=== PATIENT | female | born 1985 | race Caucasian/White ===

== ENCOUNTER 2023-12-01 15:18 | Emergency (ER) | payer OTHER, SELFPAY ==
[2023-12-01 15:24] VITALS: BP 93/73
[2023-12-01 15:49] LABS: Urine Albumin Negative (Neg - Trace); Urine Bilirubin Negative (Negative); Urine Character Slightly Cloudy (Clear); Urine Color Yellow; Urine Glucose Negative (Negative); Urine Ketone Negative (Negative); Urine Leukocyte Negative (Negative); Urine Nitrite Negative (Negative); Urine Occult Blood Negative (Negative); Urine Specific Gravity 1.025 (<1.030); Urine Urobilinogen Negative (Neg - 1+)
--- NOTE | 2023-12-01 16:41 | ED.GENMED ---
History of Present Illness
General
Chief Complaint: Abdominal Symptoms
Source: patient
Time Seen by Provider: 12/01/23 16:11
History of Present Illness
History of Present Illness:
38yoF with a history of anxiety presenting with her significant other for evaluation of vomiting and diarrhea. Symptoms began around 5:30am this morning with loose stool. She has been having persistent vomiting and diarrhea throughout the day and
has been unable to tolerate PO intake. She estimates that she has had about 30 episodes of diarrhea so far today. She is also having generalized abdominal pain that comes in waves. The pain worsens right before she has a bowel movement and then
improves shortly afterwards. She denies any fevers, hematochezia, hematemesis. She ate steak, rice, and salad at a restaurant last night. She denies any recent travel, recent antibiotics, or sick contacts.
Phy Exam
General Physical Exam
General Presentation: well appearing and no apparent distress
General Skin: warm and dry
General Habitus: normal
General Mental: alert
Cardiovascular Exam
Cardiovascular Exam: regular rate/rhythm
Heart Sounds: normal
Pulmonary Exam
Pulmonary Exam: lungs clear, no respiratory distress, no rales, no crackles, no rhonchi and no wheezing
Gastrointestinal Exam
Gastrointestinal Exam: non tender, soft and non distended
Course
Orders/Labs/Results
Orders:
Orders
12/01/23 15:27
Urinalysis Reflex To Culture Urgent
Date Specimen was Collected: 12/01/23
Time Specimen was Collected: 15:21
12/01/23 16:40
0.9% Sodium Chloride 1000 ml [Nss] 1,000 ml IV BOLUS
Ondansetron Injectable [Zofran] 4 mg IV NOW STA
Test Result ONCE
12/01/23 17:00
Complete Blood Count/With Diff Urgent
Comprehensive Metabolic Panel Urgent
HCG, Serum Qualitative Screen Urgent
Lipase Urgent
Abnormal Lab Results
12/01/23
17:00
MCH 31.4 H pg
(27.0-31.0)
Absolute Neuts (auto) 9.8 H 10^3/uL
(1.4-6.5)
Absolute Lymphs (auto) 0.4 L 10^3/uL
(1.2-3.4)
Neutrophils % 91.7 H %
(42.2-75.2)
Lymphocytes % 3.3 L %
(20.5-51.1)
Carbon Dioxide 18 L mmol/L
(22-30)
Calcium 10.3 H mg/dl
(8.4-10.2)
12/01/23 17:00
12/01/23 17:00
Vital Signs
Initial and Last Documented VS:
Initial Vital Signs
Temp Pulse Resp BP Pulse Ox
98.7 F 107 16 93/73 99
12/01/23 15:24 12/01/23 15:24 12/01/23 15:24 12/01/23 15:24 12/01/23 15:24
Last Documented Vital Signs
Temp Pulse Resp BP Pulse Ox
98.7 F 75 16 109/71 98
12/01/23 15:24 12/01/23 17:35 12/01/23 15:24 12/01/23 17:35 12/01/23 17:35
MDM/Problems Addressed
Differential Diagnosis Includes:
38yoF presenting for vomiting and diarrhea that began this morning. Patient ate at a restaurant for dinner last night. Also complaining of colicky abdominal pain although she has no pain currently. She is afebrile and hemodynamically stable. She
is well-appearing in no acute distress. Abdomen is soft, nontender. Differential diagnosis includes but is not limited to: Gastroenteritis, dehydration, electrolyte abnormality, doubt acute surgical pathology
Initial ED plan: Check abdominal labs, hCG, and stool studies. Defer abdominal imaging given benign exam. IV Zofran and fluid bolus for symptoms.
*Critical Care Note
Total Time (30-74mins, 75-104mins- exclusive of procedures): Not Applicable
Update Note
Update Note:
Labs reassuring including normal white count, electrolytes, and renal function. hCG negative. Patient feeling significantly improved after medications on reassessment. Patient is tolerating p.o. fluids and she feels comfortable with discharge.
Prescription for Zofran provided and supportive care discussed. Advise follow-up with PCP and return to the ED with any worsening symptoms. Patient expressed understanding and is agreeable to plan. Patient discharged in stable condition.
ED Attending Note
-
Portions of this chart may have been created with voice recognition software.� Occasional wrong word or��sound alike� substitutions may have occurred due to the inherent limitations of voice recognition software.
Discharge Plan
Departure
Patient Disposition: Home (Routine Discharge)
Date of Disposition: 12/01/23
Time of Disposition: 18:14
Patient with high blood pressure during this ER visit?: No
Discharge Problem:
Nausea & vomiting
Instructions: Acute Nausea and Vomiting
Prescriptions:
New
ondansetron 4 mg tablet,disintegrating
4 mg PO Q6H PRN (Reason: nausea and vomiting) Qty: 20 0RF
Referrals:
Lily Jay, DO [Family Provider] -
Activity Restrictions/Additional Instructions:
Take Zofran as needed for nausea. Drink plenty of fluids and hydrate. Advance slowly to a bland diet (rice, applesauce, toast).
Please follow-up with your family doctor. Return to the ER with any worsening symptoms.
Interventions
Interventions:
*Risk Screen - Suicide Last Done: 12/01/23 17:33
*General Assessment Last Done: 12/01/23 17:33
*Neglect/Abuse Screening Last Done: 12/01/23 17:33
ED- Fall Risk Assessment Last Done: 12/01/23 18:36
*ED COVID-19 Vaccine History Last Done: 12/01/23 17:33
*Nursing Disposition Last Done: 12/01/23 18:36
FY-[id number]-[id number] Assessment Last Done: 12/01/23 17:33
Discharge Date and Time
Discharge Date/Time: 12/01/23 18:40
Print Language: PERUVIAN
[2023-12-01] MEDS: ZOFRAN 4 MG IV (16:58)
[2023-12-01] MEDS: NSS 1000 IV (16:58)
[2023-12-01 17:17] LABS: % Basophils 0.1 % (0-2); % Eosinophils 0.2 % (0-6); % Immature Granulocytes 0.3 % (0-0.5); % Lymphocytes 3.3 % (20.5-51.1); % Monocytes 4.4 % (1.7-9.3); % Neutrophils 91.7 % (42.2-75.2); Absolute Lymphocytes 0.4 10^3/uL (1.2-3.4); Absolute Monocytes 0.5 10^3/uL (0.1-0.6); Absolute Neutrophils 9.8 10^3/uL (1.4-6.5); Hematocrit 38.4 % (37.0-47.0); Hemoglobin 13.6 g/dL (12.0-16.0); Mean Corp Hgb Conc. 35.4 g/dL (33.0-37.0); Mean Corpuscular Hgb 31.4 pg (27.0-31.0); Mean Corpuscular Volume 88.7 fL (81.0-99.0); Mean Platelet Volume 8.5 fL (7.4-10.4); Nucleated Red Blood Cells % 0 %; Platelet Count 304 10^3/uL (130-400); Red Blood Cell Count 4.33 10^6/uL (4.20-5.40); Red Cell Dist. Width 11.5 % (11.5-14.5); White Blood Cell Count 10.6 10^3/uL (4.8-10.8)
[2023-12-01 17:22] LABS: HCG, Serum Qualitative Screen Negative
[2023-12-01 17:27] LABS: ALT (SGPT) 24 U/L (0-35); AST (SGOT) 32 U/L (14-36); Albumin 4.8 g/dl (3.5-5.0); Alkaline Phosphatase 61 U/L (38-126); Blood Urea Nitrogen 17 mg/dl (7-17); Calcium 10.3 mg/dl (8.4-10.2); Carbon Dioxide 18 mmol/L (22-30); Chloride 105 mmol/L (98-107); Glucose 93 mg/dl (70-99); Potassium 4.4 mmol/L (3.5-5.1); Sodium 135 mmol/L (135-145); Total Bilirubin 0.7 mg/dl (0.2-1.3); Total Protein 7.5 g/dl (6.3-8.2); eGFR > 60.00
[2023-12-01 17:28] LABS: Lipase 131 U/L (23-300)
[2023-12-01 17:31] VITALS: BMI 25.7
[2023-12-01 17:35] VITALS: BP 109/71
== END 2023-12-01 18:40 | disposition home or self-care (01) ==
LOC: EMR 15:18
PROVIDERS: Emergency Medicine; Physician Assistant; EMERGENCY PHYSICIAN Emergency Medicine; FAMILY PHYSICIAN Family Medicine
DX: R11.2 Nausea with vomiting, unspecified (principal); R19.7 Diarrhea, unspecified; F41.9 Anxiety disorder, unspecified
CPT/HCPCS: 99284; 96374; 96361; 80053; 81003; 83690; 84703; 85025